=== PATIENT | female | born 1995 | race Two or more races ===

== ENCOUNTER 2018-04-14 12:32 | Emergency (ER) | payer BC ==
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
[2018-04-14 14:29] VITALS: BP 110/68
== END 2018-04-14 14:29 | disposition home or self-care (01) ==
DX: S06.0X0A Concussion without loss of consciousness, initial encounter (principal); S16.1XXA Strain of muscle, fascia and tendon at neck level, initial encounter; V01.00XA Pedestrian on foot injured in collision with pedal cycle in nontraffic accident, initial encounter; Y92.480 Sidewalk as the place of occurrence of the external cause